=== PATIENT | male | born 1975 | race Caucasian/White ===

== ENCOUNTER 2019-06-02 17:29 | Inpatient (IN) | payer SELFPAY ==
[2019-06-02] MEDS ORDERED: Labetalol HCl 100 MG/20 ML VIAL ONE (17:40)
[2019-06-02 19:36] LABS: Anion Gap 11 mmol/L (10-20); BUN (Urea Nitrogen) Less than 4 mg/dL (8.9-20.6); Calc. Creatinine Clearance 0 mL/min (70-130); Calcium 8.5 mg/dL (7.8-10.44); Carbon Dioxide 25 mmol/L (22-29); Chloride 103 mmol/L (98-107); Estimated GFR-MDRD Greater than 90; Glucose 103 mg/dL (70-105); Potassium 3.3 mmol/L (3.5-5.1); Sodium 136 mmol/L (136-145)
[2019-06-02 20:11] VITALS: BMI 38.3
[2019-06-02] MEDS ORDERED: Ondansetron PF 4 MG/2 ML Vial IVP PRN (20:23)
[2019-06-02] MEDS ORDERED: Labetalol HCl 100 MG/20 ML VIAL SLOW IVP PRN (20:30)
[2019-06-02] MEDS ORDERED: Sodium Chloride 0.9% 1,000 ML IV SCH (20:30)
[2019-06-02] MEDS: Famotidine/PF 20 mg/2ml Vial SLOW IVP SCH (21:17)
[2019-06-02] MEDS ORDERED: Potassium Chloride 40 MEQ in Sodium Chloride 0.9% 250 ML 250 ML IVPB SCH (21:30)
--- NOTE | 2019-06-02 22:13 | PDOC.EVN ---
Event Note - Event Note Event Note: H& P [id number]
[2019-06-02] MEDS ORDERED: Multivitamins, Adult 10 ML, Folic Acid 1 MG, Thiamine HCl 100 MG in Dextrose 5 %-0.45 %... IV SCH (23:00)
--- NOTE | 2019-06-03 04:25 | HP ---
CHIEF COMPLAINT: Palpitations. HISTORY OF PRESENT ILLNESS: Mr. Pabon is a 43-year-old male with past medical history of hypertension, noncompliant with medications, presented to [place] ED with palpitations. The patient was found to have heart rate of 145. As per records, the patient was given Cardizem, adenosine, and Ativan. The patient drinks alcohol chronically. The patient also was found to be hypokalemic with a potassium of 2.8. Medications given in the emergency room included Cardizem, adenosine, and Ativan. The patient supposed to be taking lisinopril and atenolol but ran out of the medications several weeks ago. The patient is being admitted to the hospital for further management. PAST MEDICAL HISTORY: Hypertension, noncompliant with medications. PAST SURGICAL HISTORY: 1. Hand surgery. 2. Low back surgery. 3. Skin cancer removal. SOCIAL HISTORY: The patient drinks alcohol every day, more than 5 drinks per day. He denies any other drug abuse. The patient currently uses cigarettes, 1 pack a day. FAMILY HISTORY: Reviewed and noncontributory. REVIEW OF SYSTEMS: Review of 14-systems negative except what was mentioned in the history of present illness. PHYSICAL EXAMINATION: GENERAL: The patient is awake, alert, anxious, not in acute distress. VITAL SIGNS: Blood pressure is 160/105, heart rate is 104, respiratory rate is 20, and pulse oximetry is 98% on room air. HEAD: Normocephalic and atraumatic. NECK: Supple. No JVD. CHEST: Fair bilateral air entry. HEART: S1 and S2, regular, tachycardic. ABDOMEN: Soft, nontender. Bowel sounds present. NEURO: Awake, alert, and oriented x3. PSYCH: Anxious. EXTREMITIES: No clubbing or cyanosis. LABORATORY DATA: Potassium was 2.8, repeat potassium is 3.3. ASSESSMENT: 1. Hypertensive urgency. 2. Tachycardia. 3. Hypokalemia. 4. Alcoholism with withdrawal. 5. Noncompliance. PLAN: 1. Admit. 2. IV fluid hydration. 3. Monitor and control blood pressure. 4. Replace potassium. 5. Add multivitamins and folic acid. 6. Reconcile home meds. 7. DVT prophylaxis, early ambulation. Job ID: [id number]
[2019-06-03 04:41] LABS: Anion Gap 11 mmol/L (10-20); BUN (Urea Nitrogen) 4 mg/dL (8.9-20.6); Calc. Creatinine Clearance 174 mL/min (70-130); Calcium 8.3 mg/dL (7.8-10.44); Carbon Dioxide 23 mmol/L (22-29); Chloride 105 mmol/L (98-107); Estimated GFR-MDRD Greater than 90; Glucose 100 mg/dL (70-105); Potassium 3.6 mmol/L (3.5-5.1); Sodium 135 mmol/L (136-145)
[2019-06-03 07:31] VITALS: BP 177/107; TEMP 99.5
[2019-06-03] MEDS: Famotidine/PF 20 mg/2ml Vial SLOW IVP SCH (08:59)
[2019-06-03] MEDS ORDERED: Carvedilol 6.25 MG TAB PO SCH (10:00)
[2019-06-03] MEDS ORDERED: Lisinopril 10 MG TAB PO SCH (10:00)
--- NOTE | 2019-06-03 18:13 | DIS ---
DATE OF ADMISSION: 06/02/2019 DATE OF DISCHARGE: 06/03/2019 DISCHARGE DISPOSITION: Home. FOLLOWUP: Follow up with primary care physician, Dr. Deborah Srivastava in 1 week. The patient was seen on the day of discharge. Denies any new complaints. The patient was extensively counseled on blood pressure management. A prescription for amlodipine 5 mg daily, carvedilol 6.25 mg b.i.d. as well as lisinopril 10 mg daily was provided for 1 month. He was also prescribed clonidine as needed for systolic blood pressure over 180. BRIEF HOSPITAL COURSE: The patient is a 43-year-old male with hypertension, noncompliant with medications, presented to the hospital with palpitations at [facility] Room. His workup was consistent with supraventricular tachycardia along with hypertensive crisis. His blood pressure on ER arrival was 225/150 with heart rate of 145. He received several medications including adenosine, Cardizem, Ativan in the emergency room. He was found to have potassium of 2.8 on admission, which was replaced. He was monitored on the telemetry unit. This morning, his blood pressure was 177/107 and 169/105 with a heart rate of 98. The patient signed against medical advise due to personal reason. He is not stable for discharge. He was extensively counseled to be compliant with antihypertensive medications. He understands the risks, not limited to life-threatening complications including , by signing against medical advice. He will benefit from a repeat basic metabolic profile after 1 week. FINAL DIAGNOSES: 1. Hypertensive urgency. 2. Supraventricular tachycardia, status post adenosine. 3. Chronic low back pain. 4. Medication noncompliance. 5. Hypokalemia. 6. Hypomagnesemia, replaced. 7. Dehydration with lactic acidosis on admission. 8. Hyponatremia. PLAN: Plan of care was discussed with the patient in detail. He stated understanding. Job ID: [id number]
== END 2019-06-03 10:40 | disposition left against medical advice (07) | DRG 309 ==
LOC: ERS 17:29 → 2NO 18:50
PROVIDERS: ADMIT Internal Medicine; ATTEND Internal Medicine
DX: I47.1 Supraventricular tachycardia (principal); F10.239 Alcohol dependence with withdrawal, unspecified; E87.2 Acidosis; E87.1 Hypo-osmolality and hyponatremia; I16.0 Hypertensive urgency; I10 Essential (primary) hypertension; E87.6 Hypokalemia; F17.210 Nicotine dependence, cigarettes, uncomplicated; G89.29 Other chronic pain; M54.9 Dorsalgia, unspecified; E83.42 Hypomagnesemia; E86.0 Dehydration; Z91.14 Patient's other noncompliance with medication regimen; Z85.828 Personal history of other malignant neoplasm of skin
CPT/HCPCS: 36415; 80048; 93005; 96374; 96376; J3411; J3480; J7042; J7050; S0028